=== PATIENT | female | born 1970 | race Caucasian/White ===

== ENCOUNTER → 2018-01-02 13:20 | Outpatient (CLI) | payer MEDICAID | END | disposition home or self-care (01) | LOC: D.RT 13:20 | DX: R06.02 Shortness of breath (principal) ==

== ENCOUNTER → 2019-01-28 12:33 | Outpatient (CLI) | payer MEDICAID | END | disposition home or self-care (01) | LOC: D.MRI 12:33 | PROVIDERS: ATTEND Nurse Practitioner | DX: Z82.49 Family history of ischemic heart disease and other diseases of the circulatory system (principal) ==